=== PATIENT | male | born 1975 | race Caucasian/White ===

== ENCOUNTER → 2019-05-15 | Outpatient (CLI) | payer BC ==
[2019-05-15 11:10] LABS: BASO % 1 % (0-3); EOS % 1 % (0-3); HEMATOCRIT 48.9 % (39.0-53.0); HEMOGLOBIN 17.2 g/dL (13.0-17.5); LYMPH # 1.6 x10^3/uL (1.0-4.8); LYMPH % 26 % (24-48); MEAN CORPUSCULAR HEMOGLOBIN 30 pg (25-35); MEAN CORPUSCULAR HGB CONC 35 g/dL (31-37); MEAN CORPUSCULAR VOLUME 84 fL (79-100); MONO # 0.4 x10^3/uL (0.0-1.1); MONO % 6 % (0-9); NEUT # 4.1 x10^3/uL (1.8-7.7); NEUT % 67 % (31-73); PLATELET COUNT 245 x10^3/uL (140-400); RED BLOOD COUNT 5.82 x10^6/uL (4.30-5.70); RED CELL DISTRIBUTION WIDTH 13.1 % (11.5-14.5); WHITE BLOOD COUNT 6.1 x10^3/uL (4.0-11.0)
[2019-05-15 11:25] LABS: BARBITURATES NEG (NEG); BENZODIAZEPINES NEG (NEG); CANNABINOIDS NEG (NEG); COCAINE NEG (NEG); METHADONE NEG (NEG); OPIATES NEG (NEG); PHENCYCLIDINE NEG (NEG)
[2019-05-15 11:29] LABS: ALBUMIN 4.6 g/dL (3.4-5.0); ALBUMIN/GLOBULIN RATIO 1.3 (1.0-1.7); CALCIUM 9.5 mg/dL (8.5-10.1); GFR 81.6; POTASSIUM 3.8 mmol/L (3.5-5.1); TOTAL BILIRUBIN 1.7 mg/dL (0.2-1.0); TOTAL PROTEIN 8.1 g/dL (6.4-8.2)
[2019-05-15 11:34] LABS: FREE T4 1.36 ng/dL (0.76-1.46); THYROID STIM HORMONE (TSH) 1.762 uIU/mL (0.358-3.74)
[2019-05-15 11:36] LABS: AMPHETAMINE/METHAMPHETAMINE NEG (NEG)
== END | disposition home or self-care (01) ==
LOC: LAB 10:45
PROVIDERS: ATTEND Psychiatry & Neurology Neurology
DX: H53.8 Other visual disturbances (principal); H47.10 Unspecified papilledema; R51 Headache
CPT/HCPCS: 36415; 80053; 80307; 84439; 84443; 85025; 86038; 86141

== ENCOUNTER → 2019-05-21 | Outpatient (CLI) | payer BC ==
[~2019-05-21] MED LIST: GADOTERATE 5 MMOL/10ML VIAL. IVP ONE
--- NOTE | 2019-05-21 11:10 | KCIC ---
MRI of the Brain and orbits without and with Contrast 05/21/2019 Clinical History: Bilateral blurred vision with headaches. Photophobia. Technique: Unenhanced T1-weighted sagittal and axial and FLAIR, T2-weighted, gradient echo and diffusion-weighted axial images of the brain were obtained. Thin section fat saturated T1-weighted axial and coronal fat saturated T2-weighted coronal images of the orbits were obtained. After the intravenous administration of 18 cc of DOTAREM, enhanced T1-weighted axial and coronal images of the brain were obtained. Additionally fat saturated thin section enhanced T1-weighted axial and coronal images through the orbits were obtained. Findings: The ventricles and sulci are within normal limits in size and configuration. Patchy and several small focal areas of increased signal intensity are seen within the periventricular and subcortical white matter of both cerebral hemispheres on the FLAIR and T2-weighted images. These measure 2 mm to 4 mm in size. Their MRI appearance is nonspecific. They are felt to most likely represent areas of minimal small vessel ischemic disease. No acute parenchymal abnormality is seen. No abnormal area of contrast enhancement is seen. No extra-axial fluid collection is noted. There is no MRI evidence of acute ischemia/infarction. Images through the orbits are within normal limits. No abnormal soft tissue mass or area of abnormal contrast enhancement is noted. The globes, extraocular muscles, optic nerve sheath complexes, optic chiasm and visualized portions of the optic tracts are within normal limits. Mild atherosclerotic thickening in seen scattered throughout the paranasal sinuses. There are minimal bilateral mastoid effusions. Normal flow voids are seen within the major vascular structures surrounding the brain parenchyma. Impression: 1. No acute parenchymal abnormality is seen. 2. Negative MRI of the orbits. Electronically signed by: Gaudencio Guzmán MD (05/21/2019 11:07 AM) [facility]
== END | disposition home or self-care (01) ==
LOC: KCIC MRI 08:18
PROVIDERS: ATTEND Psychiatry & Neurology Neurology
DX: H70.13 Chronic mastoiditis, bilateral (principal); I70.8 Atherosclerosis of other arteries; H53.8 Other visual disturbances
CPT/HCPCS: 70543; 70553; A9575

== ENCOUNTER → 2019-05-31 | Outpatient (CLI) | payer BC ==
[~2019-05-31] MED LIST changes: -GADOTERATE 5 MMOL/10ML VIAL. IVP ONE; +GADOTERATE 7.5 MMOL/15ML VIAL. IVP ONE
--- NOTE | 2019-06-01 13:18 | KCIC ---
CERVICAL SPINE WO/W CONTRAST, THORACIC SPINE WO/W CONTRAST History: Left arm weakness. Swollen left optic nerve. Technique: Multiplanar, multi sequential pre and postcontrast MR imaging was performed of the cervical and thoracic spine. Comparison: None Findings: Cervical spine MRI Normal vertebral body height and alignment. No fracture. C7 inferior vertebral body hemangioma. Normal appearance of the cervical spinal cord. No pathologic signal abnormality. No pathologic enhancement. C6-C7 small posterior disc bulge. Minimal cord flattening. No canal or neuroforaminal narrowing. Mild facet arthropathy. Thoracic spine MRI: Normal vertebral body height and alignment. No fracture. No pathologic marrow replacing process. No pathologic signal abnormality within the thoracic cord. No pathologic enhancement. Mild degenerative disc changes. Small posterior disc protrusion T3-T4. Minimal cord flattening. No canal or neuroforaminal narrowing. T7-T8 right central tiny disc protrusion abutting the right ventral cord with cord flattening. No canal narrowing or neuroforaminal narrowing. Small T8-T9 right disc protrusion. Impression: 1. No pathologic signal abnormality or enhancement within the cervical or thoracic spinal cord. 2. Mild cervical and thoracic spondylosis with mild cord flattening C6-C7, T3-T4 and T7-T8. Electronically signed by: Jared Ferraro DO (06/01/2019 1:15 PM) [facility]
== END | disposition home or self-care (01) ==
LOC: KCIC MRI 09:48
PROVIDERS: ATTEND Psychiatry & Neurology Neurology
DX: M50.23 Other cervical disc displacement, cervicothoracic region (principal); M47.813 Spondylosis without myelopathy or radiculopathy, cervicothoracic region; M12.88 Other specific arthropathies, not elsewhere classified, other specified site; H53.8 Other visual disturbances; H47.10 Unspecified papilledema
CPT/HCPCS: 72156; 72157; A9575

== ENCOUNTER 2019-06-04 08:21 | Outpatient (CLI) | payer BC ==
[2019-06-04 09:59] VITALS: BP 148/93
[2019-06-04 11:01] VITALS: BP 161/89
--- NOTE | 2019-06-04 11:20 | RAD ---
Fluoroscopic guided diagnostic lumbar puncture. History: Swelling around optic nerves more so on the left side. Vision problems. Back and neck pain for one week. Numbness in left hand and left foot. Procedure: The procedure and possible complications including bleeding and infection and spinal headache were explained. The patient provided both verbal and written consent. A timeout was performed which confirmed the name of the patient and date of and type of procedure. A skin jerrod was placed overlying the lower lumbar spine at the L3-4 level. The lower back was prepped with Betadine and draped in the usual sterile fashion. A total of 3 cc of 1% lidocaine was utilized for local anesthesia. Using sterile technique and fluoroscopic guidance, a 22-gauge spinal needle was directed into the spinal canal at the L3-4 level. Opening pressure was 22 cm H2O. A total of 11 cc of clear CSF was aspirated and placed into 4 separate specimen bottles. These were sent to the laboratory and laboratory orders as per the patient's physician. Closing pressure was 13 cm H2O. The stylette was replaced and the needle was removed and hemostasis was deemed adequate. 5 minutes of manual compression was applied. Sterile bandage was applied to the puncture site. The patient tolerated the procedure well without complication and was sent back to the recovery area for 2 hours of observation prior to consideration for discharge. Follow-up will be with the patient's physician. Total fluoroscopic time: 0.4 minutes. Total fluoroscopic spot images: 1. Impression: Fluoroscopic guided diagnostic lumbar puncture was performed without complication. Electronically signed by: Milton Abdalla MD (06/04/2019 11:18 AM) [facility]
[2019-06-04 11:34] LABS: CSF CLARITY CLEAR; CSF COLOR COLORLESS; CSF WBC COUNT 1 /cmm (Not Established)
[2019-06-04 11:35] LABS: CSF RBC COUNT 0 /cmm (Not Established)
[2019-06-04 12:00] VITALS: BP 139/92
--- NOTE | 2019-06-04 12:01 | NUR ---
Discharge Note: DAMARI LICONA Discharge instructions and discharge home medications reviewed with Patient and a copy given. All questions have been answered and understanding verbalized. The following instructions and handouts were given: work excuse and LP post care instructions Patient discharged to Home or Self Care withSpousevia Ambulated
[2019-06-04 12:20] LABS: CSF PROTEIN 46.1 mg/dL (15.0-45.0)
[2019-06-06 15:11] LABS: MYELIN BASIC PROTEIN 3.3 ng/mL (0.0-4.7)
[2019-06-06 20:08] LABS: HERPES SIMPLEX TYPE 1 Negative (Negative); HERPES SIMPLEX TYPE 2 Negative (Negative)
== END 2019-06-04 12:04 | disposition home or self-care (01) ==
LOC: RAD 08:21
PROVIDERS: ATTEND Psychiatry & Neurology Neurology
DX: G58.8 Other specified mononeuropathies (principal)
CPT/HCPCS: 62270; 77003; 82945; 83873; 84157; 87071; 87075; 87102; 87252; 87529; 89051

== ENCOUNTER → 2019-06-15 | Outpatient (CLI) | payer BC ==
[2019-06-04 12:00] VITALS: BP 139/92
== END | disposition home or self-care (01) ==
LOC: LAB 12:24
PROVIDERS: ATTEND Psychiatry & Neurology Neurology
DX: H47.10 Unspecified papilledema (principal)
CPT/HCPCS: 36415